=== PATIENT | male | born 1970 | race Caucasian/White ===

== ENCOUNTER 2019-02-20 19:56 | Emergency (ER) | payer OTHER, SELFPAY ==
--- NOTE | 2019-02-20 20:04 | DI.RAD.S_ITS ---
PROCEDURE: XR CHEST 1V INDICATIONS: chest pain TECHNIQUE: One view of the chest was acquired. COMPARISON: [facility], , CERVICAL SPINE 2 OR 3 VIEWS, 02/10/2017, 9:16. FINDINGS: Surgical changes and devices: Lower cervical spine fusion. Lungs and pleura: Lungs are clear. No pleural effusions or pneumothorax. Mediastinum: Mediastinal contours appear normal. Heart size is normal. Bones and chest wall: No suspicious bony lesions. Overlying soft tissues appear unremarkable. IMPRESSION: No acute cardiopulmonary disease. Dictated by: Leah Mijares M.D. on 02/20/2019 at 20:48 Approved by: Leah Mijares M.D. on 02/20/2019 at 20:49
[2019-02-20 20:05] VITALS: BP 135/89; PULSE 86; RESP 18; TEMP 37; O2SAT 99; BMI 25.1
[2019-02-20 20:23] LABS: Add Manual Diff / Slide Review NO; Basophils Absolute Auto 100 /uL (0-100); Basophils Percent Auto 0.7 % (0-2); Eosinophils Absolute Auto 500 /uL (0-450); Eosinophils Percent Auto 5.7 % (2-4); Hematocrit 41.3 % (41-53); Hemoglobin 14.4 g/dL (13.5-17.5); Lymphocytes Absolute Auto 2500 /uL (1100-4500); Lymphocytes Percent Auto 31.5 % (25-40); Mean Corpuscular HGB Conc 34.8 % (30-36); Monocytes Absolute Auto 900 /uL (0-900); Monocytes Percent Auto 11.2 % (3-14); Neutrophils Absolute Auto 4000 /uL (1500-7000); Neutrophils Percent Auto 50.9 % (50-75); Platelet Count 326 X10^3/uL (150-400); Red Blood Cell Count 4.64 X10^6/uL (4.5-5.9); Red Cell Distribution Width 13.1 % (11.6-14.8); White Blood Cell Count 7.9 X10^3/uL (4.5-11.0)
[2019-02-20] MEDS: SODIUM CHLORIDE 0.9% 1,000 ML 150 ML IV (20:23)
[2019-02-20 20:34] LABS: Alanine Aminotransferase 42 IU/L (21-72); Albumin 4.2 g/dL (3.5-5.0); Albumin Globulin Ratio 1.4 (1.0-2.8); Alkaline Phosphatase 95 U/L (38-126); Aspartate Aminotransferase 26 IU/L (17-59); BUN Creatinine Ratio 27.1 (6-22); Bilirubin Total 0.3 mg/dL (0.2-1.3); Blood Urea Nitrogen 19 mg/dL (9-20); Calcium 9.2 mg/dL (8.4-10.2); Carbon Dioxide 27 mmol/L (22-32); Chloride 103 mmol/L (98-107); Creatine Kinase 26 U/L (55-170); Estimated Glomerular Filt Rate > 60.0 mL/min (>60); Globulin 3.1 g/dL (1.7-4.1); Glucose 114 mg/dL (70-100); HEMOLYSIS 24 (0-50); Lipase 67 U/L (23-300); Potassium 4.1 mmol/L (3.4-5.1); Sodium 140 mmol/L (137-145); Total Protein 7.3 g/dL (6.3-8.2)
[2019-02-20 20:46] LABS: Troponin I < 0.012 ng/mL (0.01-0.034)
[2019-02-20 21:15] VITALS: BP 127/84; PULSE 79; RESP 18; O2SAT 99
--- NOTE | 2019-02-20 21:45 | ED.NEUROSD ---
HPI - Neuro Symptoms/Deficit General Chief Complaint: Neuro Symptoms/Deficit Stated Complaint: HAD SURGERY NEEDS PAIN MANGMENT Time Seen by Provider: 02/20/19 20:00 Source: patient and family Mode of arrival: ambulatory Limitations: no limitations History of Present Illness HPI Narrative: 48-year-old male daily smoker with history of cervical radiculopathy and recent anterior cervical fusion at [facility] presents with worsening left arm pain over the past few days. His presenting symptoms, prior to surgery involved left upper extremity radiculopathy with involvement 3rd 4th and 5th fingers. Surgery was last week and was successful. He has been having worsening symptoms over the past day or 2 and contacted the on-call surgeon whom sent him here for evaluation. Patient had a prescription for methylprednisolone and methocarbamol called in earlier today but has yet to take them. He denies any injury, felt no pops or sudden change. He denies any significant difficulty in swallowing and no trouble breathing. His pain is worse with motion and improves with rest. It radiates down his left arm into his index finger and thumb. Onset (ago): day(s) Location: left arm History of same: Yes Severity: severe Quality: tingling and burning Relieving factors: rest On Anticoagulants: No Associated symptoms: denies other symptoms Treatments Prior to Arrival: other medication Related Data Previous Rx's Medication Instructions Recorded methylprednisolone 4 mg tablets in See Rx Instructions PO PER PKG DIR 09/24/18 a dose pack #21 each oxycodone 5 mg PO Q4-6H PRN #10 tab 02/20/19 Allergies Allergy/AdvReac Type Severity Reaction Status Date / Time No Known Allergies Allergy Uncoded 12/08/17 12:52 Review of Systems Constitutional Denies chills, Denies fever(s), Denies lethargy and Denies weakness Eyes Denies change in vision, Denies eye discharge, Denies irritation and Denies loss of vision ENT Ears, Nose, Mouth, and Throat: Denies change in voice, Denies neck pain and Denies sore throat Cardiovascular Denies chest pain, Denies irregular heart rhythm, Denies lightheadedness, Denies palpitations, Denies dyspnea, Denies dyspnea on exertion and Denies orthopnea Respiratory Denies cough, Denies dyspnea, Denies dyspnea on exertion and Denies wheezing Gastrointestinal Gastrointestinal: Denies abdominal pain, Denies change in bowel habits, Denies diarrhea, Denies nausea and Denies vomiting Genitourinary Denies hematuria, Denies flank pain, Denies urinary incontinence and Denies urinary urgency Musculoskeletal Reports limited range of motion, Denies neck pain and Reports radiating pain into limb Integumentary/Breasts Denies pruritus, Denies erythema, Denies rash and Denies wounds Neurologic Denies confusion, Denies loss of vision and Denies weakness Psychiatric Denies anxiety, Denies confusion, Denies depression, Denies homicidal ideation and Denies suicidal ideation Endocrine Denies palpitations Hematologic/Lymphatic Denies easy bruising Allergic/Immunologic Denies wheezing PFSH Social History Smoking Status: Current every day smoker Social History Smoking Status: Current every day smoker Exam Narrative Exam Narrative: GENERAL: 48-year-old male obviously uncomfortable, splinting his left arm. HEAD: Atraumatic. Normocephalic. No temporal or scalp tenderness. EYES: Pupils equal round and reactive. Extraocular motions intact. No scleral icterus. No injection or drainage. ENT: Nose without bleeding, purulent drainage or septal hematoma. Throat without erythema, tonsillar hypertrophy or exudate. Uvula midline. Airway patent. NECK: Anterior surgical incision is clean, dry and intact Trachea midline. No JVD or lymphadenopathy. Supple, nontender, no meningeal signs. CARDIOVASCULAR: Regular rate and rhythm without murmurs, gallops, or rubs. RESPIRATORY: Clear to auscultation. Breath sounds equal bilaterally. No wheezes, rales, or rhonchi. GASTROINTESTINAL: Abdomen soft, non-tender, nondistended. No hepato-splenomegaly, or palpable masses. No guarding. EXTREMITIES: Left upper extremity with decreased range of motion secondary to pain, no measurable weakness No clubbing, cyanosis, or edema. No joint tenderness, effusion, or edema noted. BACK: Nontender without deformity or crepitance. No flank tenderness. NEURO: AOx3. SKIN: No rash or erythema. Initial Vital Signs Initial Vital Signs: Vital Signs Temperature 98.6 F 02/20/19 20:05 Pulse Rate 86 02/20/19 20:05 Respiratory Rate 18 02/20/19 20:05 Blood Pressure 135/89 02/20/19 20:05 Pulse Oximetry 99 02/20/19 20:05 Course Orders Ordered: ED Orders 02/20/19 20:04 XR chest 1V Stat EKG-12 Lead Stat 02/20/19 20:15 Complete Blood Count AUTO DIFF Stat Comprehensive Metabolic Panel Stat Lipase Stat Troponin & CK Cardiac Panel Stat Discontinued Medications Cyclobenzaprine HCl (Flexeril 10 Mg Prepack) 1 bottle MISC SEEINSTR ONE Stop: 02/20/19 21:47 Last Admin: 02/20/19 22:09 Dose: 1 bottle Sodium Chloride (Normal Saline 0.9%) 1,000 mls @ 150 mls/hr IV CONT ERLINDA Last Infusion: 02/20/19 22:20 Dose: 0 mls/hr Admin: 02/20/19 20:23 Dose: 150 mls/hr Methylprednisolone (Solu-Medrol 125 Mg Vial) 125 mg IV NOW ONE Stop: 02/20/19 21:47 Last Admin: 02/20/19 22:09 Dose: 125 mg Oxycodone/Acetaminophen (Percocet 5/325) 1 tab PO NOW ONE Stop: 02/20/19 21:30 Last Admin: 02/20/19 22:09 Dose: 1 tab Oxycodone/Acetaminophen (Endocet 5/325 Prepack) 1 bottle MISC SEEINSTR ONE Stop: 02/20/19 22:09 Last Admin: 02/20/19 22:16 Dose: 1 bottle Reevaluation(s) Reevaluation #1: Patient experiences some improvement after above-stated therapies Consultations Consultation #1: Discussion with on-call neuro surgical of provider at [facility] whom plans to contact patient tomorrow and see how steroids, opioids and muscle relaxers help. Vital Signs - 8 hr 02/20/19 20:05 02/20/19 21:15 02/20/19 22:17 Temperature 98.6 F Pulse Rate 86 79 88 Respiratory Rate 18 18 18 Blood Pressure 135/89 137/78 Blood Pressure [Left Arm] 127/84 Pulse Oximetry 99 99 100 MDM - Neuro Symptoms/Deficit Lab Data Result diagrams: 02/20/19 20:15 02/20/19 20:15 Lab Results 02/20/19 02/20/19 Range/Units 20:15 20:15 WBC 7.9 (4.5-11.0) X10^3/uL RBC 4.64 (4.5-5.9) X10^6/uL Hgb 14.4 (13.5-17.5) g/dL Hct 41.3 (41-53) % MCV 89.0 (80-100) fL MCH 31.0 (26-34) PG MCHC 34.8 (30-36) % RDW 13.1 (11.6-14.8) % Plt Count 326 (150-400) X10^3/uL Neut % (Auto) 50.9 (50-75) % Lymph % (Auto) 31.5 (25-40) % [place] % (Auto) 11.2 (3-14) % Eos % (Auto) 5.7 H (2-4) % Baso % (Auto) 0.7 (0-2) % Neut # (Auto) 4000 (0242-5902) /uL Lymph # (Auto) 2500 (3621-4968) /uL [place] # (Auto) 900 (0-900) /uL Eos # (Auto) 500 H (0-450) /uL Baso # (Auto) 100 (0-100) /uL Sodium 140 (137-145) mmol/L Potassium 4.1 (3.4-5.1) mmol/L Chloride 103 (98-107) mmol/L Carbon Dioxide 27 (22-32) mmol/L BUN 19 (9-20) mg/dL Creatinine 0.70 (0.66-1.25) mg/dL Estimated GFR > 60.0 (>60) mL/min BUN/Creatinine Ratio 27.1 H (6-22) Glucose 114 H (70-100) mg/dL Calcium 9.2 (8.4-10.2) mg/dL Total Bilirubin 0.3 (0.2-1.3) mg/dL AST 26 (17-59) IU/L ALT 42 (21-72) IU/L Alkaline Phosphatase 95 (38-126) U/L Total Creatine Kinase 26 L (55-170) U/L CK-MB (CK-2) TNP CK-MB (CK-2) Rel Index TNP Troponin I < 0.012 (0.01-0.034) ng/mL Total Protein 7.3 (6.3-8.2) g/dL Albumin 4.2 (3.5-5.0) g/dL Globulin 3.1 (1.7-4.1) g/dL Albumin/Globulin Ratio 1.4 (1.0-2.8) Lipase 67 (23-300) U/L Discharge Plan Departure Patient Disposition: Home Clinical Impression: Cervical radicular pain Discharge Date/Time: 02/20/19 22:21 Interventions: ED Discharge Assessment Last Done: 02/20/19 22:17 Instructions: DI for Cervical Radiculopathy Activity Restrictions/Additional Instructions: *You have been diagnosed with [acute postoperative cervical radiculopathy] *What to do: *Take medications as directed *Follow up with your neurosurgeon as planned. *Return to ER if you should have any new, worsening or concerning symptoms, such as [trouble swallowing, trouble breathing, worsening pain or any other concerning symptoms] Prescriptions: New oxycodone 5 mg tablet 5 mg PO Q4-6H PRN (Reason: pain) Qty: 10 RF: 0 No Action methylprednisolone 4 mg tablets,dose pack See Rx Instructions PO PER PKG DIR Qty: 21 RF: 0
[2019-02-20] MEDS: methylPREDNISolone 125 MG/2 ML VIAL IV (22:09)
[2019-02-20] MEDS: OXYCODONE/ACETAMINOPHEN 5/325 TABLET 1 TAB PO (22:09)
[2019-02-20] MEDS: CYCLOBENZAPRINE 10 MG PREPACK 1 BOTTLE MISC (22:09)
[2019-02-20] MEDS: OXYCODONE/APAP 5/325 PREPACK 1 BOTTLE MISC (22:16)
[2019-02-20 22:17] VITALS: BP 137/78; PULSE 88; RESP 18; O2SAT 100
== END 2019-02-20 22:21 | disposition home or self-care (01) ==
PROVIDERS: Emergency Provider Emergency Medicine
DX: M54.12 Radiculopathy, cervical region (principal)
CPT/HCPCS: 36591; 71045; 80053; 82550; 83690; 84484; 85025; 93005; 93010; 96361; 96374; 99283; 99285; J2930